=== PATIENT | female | born 1955 | race Caucasian/White ===

== ENCOUNTER → 2021-01-15 11:14 | Outpatient (CLI) | payer OTHER, SELFPAY ==
--- NOTE | ~2021-01-15 | MM_ITS ---
EXAMINATION: MM screening [place] BI w matthew HISTORY: Screening mammogram TECHNIQUE: Craniocaudal and mediolateral oblique 3-D tomosynthesis images were obtained and synthetic 2-D images were generated. CAD analysis was submitted and interpreted. COMPARISON: 10/30/2017, 05/09/2016, 12/17/2012 bilateral digital screening mammogram examinations BREAST PARENCHYMAL COMPOSITION: The breasts are heterogeneously dense, which may obscure small masses . FINDINGS: Digital asymmetry is noted in the posterior inner right breast on cc view. Diagnostic right mammogram is recommended, with ultrasound if required. No suspicious mass, architectural distortion, malignant calcification, skin thickening or retraction of either breast is noted otherwise. IMPRESSION: 1. New asymmetry in posterior inner right breast 2. Diagnostic right mammogram is recommended, with ultrasound if required BI-RADS Category 0: Incomplete: Needs additional imaging evaluation. Reviewed, dictated and finalized at location A.
== END ==
PROVIDERS: PCP Family Medicine; Visit Provider Obstetrics & Gynecology
DX: Z12.31 Encounter for screening mammogram for malignant neoplasm of breast (principal); R92.8 Other abnormal and inconclusive findings on diagnostic imaging of breast
CPT/HCPCS: 77063; 77067

== ENCOUNTER → 2021-02-13 09:20 | Outpatient (CLI) | payer OTHER, SELFPAY ==
--- NOTE | ~2021-02-13 | MM_ITS ---
EXAMINATION: MM diagnostic haleigh RT w matthew HISTORY: Focal asymmetry of the right breast on screening mammogram TECHNIQUE: Additional 3-D tomosynthesis images of the right breast were performed and synthetic 2-D i mages were generated. CAD analysis was submitted and interpreted. COMPARISON: 01/15/2021, 10/30/2017, 05/09/2016 FINDINGS: There is a return to baseline fibroglandular appearance with spot compression of the right breast in the area questioned on screening mammogram. IMPRESSION: 1. No mammographic evidence of malignancy. 2. Recommend routine screening mammography in one year. BI-RADS Category 1: Negative Reviewed, dictated and finalized at location A.
== END ==
PROVIDERS: PCP Family Medicine; Visit Provider Obstetrics & Gynecology
DX: R92.8 Other abnormal and inconclusive findings on diagnostic imaging of breast (principal)
CPT/HCPCS: 77061; 77065; G0279

== ENCOUNTER → 2021-03-04 18:05 | Outpatient (CLI) | payer OTHER, SELFPAY ==
--- NOTE | ~2021-03-04 | DEXA_ITS ---
Bone Density Report Name: Jennifer Patel Age: 65 Sex: Female Ethnicity: White Date of : 1955 Indication: postmenopausal osteoporosis; monitoring treatment; Referring Provider: ARLETH ANTONIO Study: Bone densitometry was performed. Exam Date: March 04, 2021 Accession number: [id number] Bone Density: Region BMD T-score Z-score Classification AP Spine (L1-L4) 0.864 -1.7 0.1 Osteopenia Femoral Neck (Left) 0.577 -2.5 -0.9 Osteoporosis Total Hip (Left) 0.669 -2.2 -1.0 Osteopenia Femoral Neck (Right) 0.509 -3.1 -1.5 Osteoporosis Total Hip (Right) 0.608 -2.7 -1.5 Osteoporosis Total Hip Mean 0.639 -2.5 -1.3 Osteopenia World Health Organization criteria for BMD impression classify patients as: Normal (T-score at or above -1.0), Osteopenia (T-score between -1.0 and -2.5), or Osteoporosis (T-score at or below -2.5). 10-year Fracture Risk: FRAX not reported because: Some T-score for Spine Total or Hip Total or Femoral Neck at or below -2.5 Treated for osteoporosis Previous Exams: Region Exam Age BMD T-score BMD Change BMD Change Date g/cm2 vs Baseline vs Previous AP Spine(L1-L4) 03/04/2021 65 0.864 -1.7 -0.117* 0.005 05/09/2016 60 0.859 -1.7 -0.123* -0.123* 12/03/2006 50 0.982 -0.6 Total Hip(Left) 03/04/2021 65 0.669 -2.2 -0.099* -0.009 05/09/2016 60 0.678 -2.2 -0.090* -0.090* 12/03/2006 50 0.768 -1.4 Total Hip(Right) 03/04/2021 65 0.608 -2.7 -0.116* -0.033* 05/09/2016 60 0.641 -2.5 -0.082* -0.082* 12/03/2006 50 0.724 -1.8 *Denotes significance at 95% confidence level, LSC for AP Spine = 0.022 g/cm2, LSC for Total Hip = 0.027 g/cm2 Clinical Information Provided by Patient: Is being treated for osteoporosis Has used the following medications: Evista (i.e. raloxifene), Vitamin D, Calcium, MTV, Levothyroxine Patient maximum height was 65.0 Menopause Age: 52 Drinks caffeinated beverages Onset of menses at age 13 Number of children 3 Impression: The patient has osteoporosis, based on the Right Femoral Neck T-score. The BMD for the Total Hip(Right) decreased, changing by -0.033 since the last DXA exam. Discussion: SIGNIFICANT BONE LOSS OBSERVED. Adherence to therapy (including calcium and vitamin D intake) should be assessed. If compliance is not a factor, review management and exclusion of secondary causes of bone loss.
== END ==
PROVIDERS: Visit Provider Obstetrics & Gynecology
DX: M85.89 Other specified disorders of bone density and structure, multiple sites (principal); M81.0 Age-related osteoporosis without current pathological fracture
CPT/HCPCS: 77080

== ENCOUNTER 2021-06-17 18:56 | Emergency (ER) | payer OTHER, SELFPAY ==
[2021-06-17 19:03] VITALS: BP 143/87; PULSE 102; RESP 18; TEMP 36.4; O2SAT 99
[2021-06-17 21:22] VITALS: BP 132/75; PULSE 87; RESP 18; TEMP 36.6; O2SAT 100
--- NOTE | 2021-06-17 23:16 | PC.NURSE ---
came and wheeled pt out in [place] as pt stated I think I'm justs gonna try and get into the doctor.
== END 2021-06-18 04:27 | disposition left against medical advice (07) ==
LOC: ANHED 23:21
PROVIDERS: PCP Family Medicine
DX: Z53.21 Procedure and treatment not carried out due to patient leaving prior to being seen by health care provider (principal)
CPT/HCPCS: 99199

== ENCOUNTER → 2022-05-29 16:09 | Outpatient (CLI) | payer OTHER, SELFPAY ==
--- NOTE | ~2022-05-29 | MM_ITS ---
EXAMINATION: MM screening [place] BI w matthew HISTORY: Screening mammogram, family history of breast cancer in her sister. TECHNIQUE: Craniocaudal and mediolateral oblique 3-D tomosynthesis images were obtained and synthetic 2-D images were generated. CAD analysis was submitted and interpreted. COMPARISON: 02/13/2021, 01/15/2021, 10/30/2017, 05/09/2016 BREAST PARENCHYMAL COMPOSITION: The breasts are heterogeneously dense, which may obscure small masses . FINDINGS: No suspicious mass, calcification, or architectural distortion are identified in either pebbles ast to suggest malignancy. There has been no suspicious interval change. IMPRESSION: 1. No mammographic evidence of malignancy. 2. Recommend routine screening mammography in one year. 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
== END ==
PROVIDERS: PCP Family Medicine; Visit Provider Obstetrics & Gynecology Gynecology
DX: Z12.31 Encounter for screening mammogram for malignant neoplasm of breast (principal)
CPT/HCPCS: 77063; 77067

== ENCOUNTER 2022-12-12 09:53 | Emergency (ER) | payer OTHER, SELFPAY ==
--- NOTE | 2022-12-12 09:55 | ED.URI ---
HPI - URI/Sore Throat General Chief Complaint: Upper Respiratory Infection Stated Complaint: sinus infection Time Seen by Provider: 12/12/22 09:54 Source: patient Mode of arrival: ambulatory Limitations: no limitations History of Present Illness HPI Narrative: Ms. Patel is a 66-year-old female patient presenting to the clinic today with complaints of possible sinus infection. She reports she has had nasal congestion, sinus pressure over the right maxilla and dizziness x3 days. States last time she let this go too long and developed vertigo for a long period of time. Is requesting an antibiotic. Denies any fever, chills, nasal drainage, or body aches. MD elicited complaint: sore throat and nasal congestion Related Data Allergies Allergy/AdvReac Type Severity Reaction Status Date / Time codeine Allergy Unknown upset Verified 05/29/22 09:00 stomach duloxetine Allergy Unknown Unknown Verified 05/29/22 09:00 nitrofurantoin Allergy Unknown Numbness Verified 05/29/22 09:00 penicillin V Allergy Unknown Rash Verified 05/29/22 09:00 Penicillins Allergy Unknown Rash Verified 05/29/22 09:00 Sulfa (Sulfonamide Allergy Unknown Numbness Verified 05/29/22 09:00 Antibiotics) Review of Systems Review of Systems: Pertinent positives per HPI. Patient denies any fever, chills, rash, visual changes, dizziness, cough, shortness of breath, chest pain, palpitations, nausea, vomiting, diarrhea, constipation, abdominal pain, or any urinary issues. [facility] Surgical History Surgical History S/P partial thyroidectomy right-side Family History Family History Sibling Family history of rheumatoid arthritis Family history of malignant neoplasm of breast in first degree relative Father Family history of Alzheimer's disease Other Carcinoma of colon Family history of cardiovascular disease Family history of kidney disease Social History Social History Smoking status: Former smoker Tobacco type: cigarettes Second hand tobacco smoke exposure: Yes Smoking end date: 06/22/73 Alcohol intake: current Alcohol use details: social Substance use: never Substance use type: does not use Lack of Transportation: No Lack of Food: Never True Current Housing: I Have Housing Concerned About Future Housing: No Difficulty Paying Gas/Electric Bills: No Difficulty Paying for Meds: No Currently Unemployed: No Education: Master's Degree or Higher Difficulty w/ Childcare or Family Care: No Living arrangements: with family Occupation/Education: occupation Gender identity (if verbalized by the patient): Female Sexual Orientation (if Verbalized by the Patient): Straight or Heterosexual Spiritual care concerns: No Comments At the time of my signature, I reviewed and agree with the nursing past medical, surgical, social, and family history. There is no relevant family history pertinent to the patient complaint. Exam Narrative: General: Well-developed, well nourished, in no apparent distress Head: Normocephalic, atraumatic Eyes: Pupils equally round and reactive to light bilaterally, EOM intact, sclera and conjunctive clear, no discharge, lids normal Ears: TMs intact and congested, ear canals clear, no drainage, grossly hearing normal. Nose: Nares patent, clear discharge, mild inflammation, no sinus tenderness. Mouth: Oral pharynx without lesions or masses, good dentition, MMM. Postnasal drip Neck: Supple, trachea midline, no enlargement of anterior or posterior cervical nodes, no thyroid masses or goiter palpable. Cardio: Regular rate and rhythm, s1 and s2 normal, no murmur appreciated. Resp: Clear to auscultation bilaterally, no rhonchi, rales, wheezing or rubs Course Course Emergency Course: Portions of this re
[2022-12-12 10:05] VITALS: BP 130/83; PULSE 88; RESP 16; TEMP 36.3; O2SAT 99
[2022-12-12 10:12] VITALS: BP 130/83; PULSE 88; RESP 16; TEMP 36.3; O2SAT 99
== END 2022-12-12 10:26 | disposition home or self-care (01) ==
PROVIDERS: Emergency Provider Nurse Practitioner Family; PCP Family Medicine
DX: J06.9 Acute upper respiratory infection, unspecified (principal); Z87.891 Personal history of nicotine dependence
CPT/HCPCS: 99213; G0463

== ENCOUNTER → 2023-03-04 08:37 | Outpatient (CLI) | payer OTHER, SELFPAY ==
--- NOTE | ~2023-03-04 | US_ITS ---
Limited Abdominal Sonogram: Real-time sonographic imaging of the right upper quadrant was performed. Clinical History: Right upper quadrant pain Findings: The liver appears normal with no evidence of mass lesion or bile duct dilatation. Main por oc vein demonstrates normal direction of flow. The gallbladder is well distended, with small layerin g gallstones. The common bile duct measures 3 mm. The visualized pancreas, aorta, and IVC are unrema rkable. Impression: Cholelithiasis. Reviewed, dictated and finalized at location M. Impression: Cholelithiasis.
== END ==
PROVIDERS: PCP Family Medicine; Visit Provider Physician Assistant
DX: R10.11 Right upper quadrant pain (principal); K80.20 Calculus of gallbladder without cholecystitis without obstruction
CPT/HCPCS: 76705

== ENCOUNTER → 2023-03-04 08:45 | Outpatient (CLI) | payer OTHER, SELFPAY ==
--- NOTE | ~2023-03-04 | US_ITS ---
EXAMINATION: US thyroid DATE: 03/04/2023 09:21 INDICATION: Nontoxic single thyroid nodule. TECHNIQUE: Multiple ultrasound images of the thyroid were obtained. COMPARISON: Ultrasound 02/25/2017 FINDINGS: The right thyroid lobe is absent. The left thyroid lobe measures 4.1 x 0.8 x 1.0 cm. In the left thy roid lobe, there is a 2 mm nodule. IMPRESSION: 1. Small thyroid nodule, likely not clinically significant. No follow-up is needed. Reviewed, dictated and finalized at location A. IMPRESSION: 1. Small thyroid nodule, likely not clinically significant. No follow-up is nee ded.
== END ==
PROVIDERS: PCP Otolaryngology; Visit Provider Otolaryngology
DX: E04.1 Nontoxic single thyroid nodule (principal)
CPT/HCPCS: 76536

== ENCOUNTER 2023-04-14 10:00 | Outpatient (CLI) | payer OTHER, SELFPAY ==
--- NOTE | ~2023-04-14 | US_ITS ---
EXAMINATION: US carotid duplex BI DATE: 04/14/2023 10:44 INDICATION: TIA TECHNIQUE: Grayscale, color Doppler, and pulsed Doppler images of the cervical carotid arteries were obtained. The degree of vessel stenosis is placed in one of the following categories: normal, <50%, 5 0-69%, >=70% but less than near-occlusion, near-occlusion, or total occlusion. Note that percent sten osis relative to normal distal artery lumen diameter is indirectly measured from velocity measurement s as described by Mario, et al. Radiology 2003; 229:340-346. Notes: Normal: Peak systolic velocity <125 centimeters/sec and no plaque <50%. Peak systolic velocity <125 ( EDV <40; ICA/CCA PSV ratio <2.0; used these factors only a tandem lesions or low cardiac output or co ntralateral disease) 50-69 %: PSV 125-230 (EDV 40-100; ratio 2-4) >= 70% but less than near occlusion: PSV greater than 230 (EDV > 100; ratio> 4.0) Near Occlusion: PSV that is variable; markedly narrowed lumen Occlusion: Absent flow on color/spectral Doppler and no lumen on mcgee scale. COMPARISON: None. FINDINGS: RIGHT: The right common carotid artery (CCA) peak systolic velocity (PSV) is 115 cm/s. The right internal ca rotid artery (ICA) PSV is 79 cm/s. The right ICA end-diastolic velocity (EDV) is 28 cm/s. The right I CA/CCA PSV ratio is 0.7. The external carotid artery (ECA) PSV is 99 cm/s. There is antegrade flow in the right vertebral artery. LEFT: The left CCA PSV is 115 cm/s. The left ICA PSV is 80 cm/s. The left ICA EDV is 23 cm/s. The left ICA/ CCA PSV ratio is 0.8. The ECA PSV is 57 cm/s. There is antegrade flow in the left vertebral artery. IMPRESSION: 1. Less than 50% stenosis in the right internal carotid artery by sonographic criteria. 2. Less than 50% stenosis in the left internal carotid artery by sonographic criteria. Reviewed, dictated and finalized at location L. IMPRESSION: 1. Less than 50% stenosis in the right internal carotid artery by sonographic jose ruiz. 2. Less than 50% stenosis in the left internal carotid artery by sonographic yadi larios.
--- NOTE | ~2023-04-14 | CT_ITS ---
Non-contrast Head CT History: TIA Technique: Axial non-contrast imaging of the brain was performed. Dose reduction technique was used on this scan by utilizing automated exposure control and iterative reconstruction technique. The dose -length product (DLP) was 605.33 mGy-cm. Findings: There is no evidence of intracranial hemorrhage, mass lesion, or acute infarct. Brain par enchyma appears normal. The ventricles and subarachnoid spaces are normal in size. The calvarium ap pears normal. The visualized paranasal sinuses and mastoid air cells are clear. Impression: No significant abnormality seen. Reviewed, dictated and finalized at location . Impression: No significant abnormality seen.
== END 2023-04-14 10:01 | disposition home or self-care (01) ==
PROVIDERS: PCP Family Medicine; Visit Provider Family Medicine
DX: I65.23 Occlusion and stenosis of bilateral carotid arteries (principal)
CPT/HCPCS: 70450; 93880

== ENCOUNTER 2023-04-23 07:29 | Day surgery (SDC) | payer OTHER, SELFPAY ==
[2023-02-18 09:39] VITALS: BMI 22.5
[2023-04-07 09:20] VITALS: BMI 22.0
--- NOTE | 2023-04-22 15:09 | WPDANESEPPF ---
Anes - Initial Pre Proc Eval Procedure: Operation Date: 04/23/23 10:00 Proposed Procedures p Colonoscopy - Homero Centeno MD Date/Time: 04/22/23 15:09 Surgeon: Homero Centeno MD Pre Op Diagnosis: Personal History of Colon Polyps Patient Data Age: 67 Gender: F Height: 1.65 m Weight: 60 kg Allergies Allergy/AdvReac Type Severity Reaction Status Date / Time codeine Allergy Severe upset Verified 04/23/23 08:45 stomach nitrofurantoin Allergy Severe Nausea and Verified 04/23/23 08:45 Vomiting penicillin V Allergy Severe Rash Verified 04/23/23 08:45 Penicillins Allergy Severe Rash Verified 04/23/23 08:45 Sulfa (Sulfonamide Allergy Severe Other Verified 04/23/23 08:45 Antibiotics) duloxetine Allergy Unknown Unknown Verified 04/23/23 08:45 Home Medications Medication Instructions Recorded Confirmed Type fluticasone propionate 50 1 - 2 spray intranasal BID #16 mL 05/29/22 04/23/23 Rx mcg/actuation nasal spray,suspension (Flonase Allergy Relief) Synthroid 75 mcg tablet See Rx Instructions .Route 02/26/23 04/23/23 Rx (levothyroxine) .COMPLEX #90 tabs valacyclovir 1 gram tablet 1,000 mg PO TID #21 tabs 02/26/23 04/23/23 Rx alprazolam 0.5 mg tablet (Xanax) 0.5 mg PO TID PRN Anxiety 04/07/23 04/23/23 History rosuvastatin 5 mg tablet (Crestor) 5 mg PO DAILY #30 tabs 04/22/23 04/23/23 Rx Patient hx anesthesia problems: none Family hx anesthesia problems: none Results Review: All pre-operative results and documents have been reviewed as part of the pre-operative evaluation. [facility] Past Medical History Medical History (Updated 04/23/23 @ 12:39 by Rob Glover DO) HLD (hyperlipidemia) Surgical History Surgical History S/P partial thyroidectomy right-side Family History Family History Sibling Family history of rheumatoid arthritis Family history of malignant neoplasm of breast in first degree relative Father Family history of Alzheimer's disease Other Carcinoma of colon Family history of cardiovascular disease Family history of kidney disease Social History Social History Smoking status: Former smoker Tobacco type: cigarettes Second hand tobacco smoke exposure: Yes Smoking end date: 06/22/73 Alcohol intake: current Alcohol use details: occassional Substance use: never Substance use type: does not use Lack of Transportation: No Lack of Food: Never True Current Housing: I Have Housing Concerned About Future Housing: No Difficulty Paying Gas/Electric Bills: No Difficulty Paying for Meds: No Currently Unemployed: No Education: Master's Degree or Higher Difficulty w/ Childcare or Family Care: No Living arrangements: with family Occupation/Education: occupation Gender identity (if verbalized by the patient): Female Sexual Orientation (if Verbalized by the Patient): Straight or Heterosexual Spiritual care concerns: No Anes - Eval Final PreProcedure Day of Procedure 04/22/23 15:09 Patient weight: normal Heart: regular rate and rhythm Lungs: clear to auscultation and normal air movement Airway: Mallampati scale class II Neurological: alert and oriented Last oral intake: >/= 8 hours ASA classification: II Emergent: no Anesthetic plan: proceed Anesthesia type and monitoring: general GIVS and standard monitoring Results Review: All pre-operative results and documents have been reviewed as part of the pre-operative evaluation. Informed Consent: The patient's anesthetic plan and its attendant risks and benefits were discussed with the patient/family/POA. Questions were solicited and answers provided to the satisfaction of the patient/family/POA.
[2023-04-23 08:40] VITALS: BP 125/78; PULSE 100; RESP 20; TEMP 36.9; O2SAT 100
[2023-04-23] MEDS: LACTATED RINGERS 1,000 ML 150 ML IV CONT (08:59)
--- NOTE | 2023-04-23 09:01 | PM.HPGS ---
History of Present Illness History of Present Illness Consent: Risks, benefits, and alternatives have been discussed and questions answered. Patient agrees to proceed with procedure. Chief complaint: Personal History of Colon Polyps Narrative: Jennifer Patel is a 67 year old female presents for screening colonoscopy. The patient's current weight appetite and bowel movements are normal. Patient has a history of a sessile serrated adenoma removed from the colon in 2018. Patient's current weight appetite and bowel movements are normal. Patient denies abdominal pain. She has had no bleeding. Family history is significant for polyps in the family. A grandparent had colon cancer. Review of Systems Review of Systems: Review of Systems noncontributory. [facility] Past Medical History Medical History (Updated 04/23/23 @ 09:03 by Homero Centeno MD) HLD (hyperlipidemia) TIA (transient ischemic attack) Surgical History Surgical History S/P partial thyroidectomy right-side Family History Family History Sibling Family history of rheumatoid arthritis Family history of malignant neoplasm of breast in first degree relative Father Family history of Alzheimer's disease Other Carcinoma of colon Family history of cardiovascular disease Family history of kidney disease Social History Social History Smoking status: Former smoker Tobacco type: cigarettes Second hand tobacco smoke exposure: Yes Smoking end date: 06/22/73 Alcohol intake: current Alcohol use details: occassional Substance use: never Substance use type: does not use Lack of Transportation: No Lack of Food: Never True Current Housing: I Have Housing Concerned About Future Housing: No Difficulty Paying Gas/Electric Bills: No Difficulty Paying for Meds: No Currently Unemployed: No Education: Master's Degree or Higher Difficulty w/ Childcare or Family Care: No Living arrangements: with family Occupation/Education: occupation Gender identity (if verbalized by the patient): Female Sexual Orientation (if Verbalized by the Patient): Straight or Heterosexual Spiritual care concerns: No Meds Home Medications and Allergies Home Medications Medication Instructions Recorded Confirmed Type fluticasone propionate 50 1 - 2 spray intranasal BID #16 mL 05/29/22 04/23/23 Rx mcg/actuation nasal spray,suspension (Flonase Allergy Relief) Synthroid 75 mcg tablet See Rx Instructions .Route 02/26/23 04/23/23 Rx (levothyroxine) .COMPLEX #90 tabs valacyclovir 1 gram tablet 1,000 mg PO TID #21 tabs 02/26/23 04/23/23 Rx alprazolam 0.5 mg tablet (Xanax) 0.5 mg PO TID PRN Anxiety 04/07/23 04/23/23 History rosuvastatin 5 mg tablet (Crestor) 5 mg PO DAILY #30 tabs 04/22/23 04/23/23 Rx Allergies Allergy/AdvReac Type Severity Reaction Status Date / Time codeine Allergy Severe upset Verified 04/23/23 08:45 stomach nitrofurantoin Allergy Severe Nausea and Verified 04/23/23 08:45 Vomiting penicillin V Allergy Severe Rash Verified 04/23/23 08:45 Penicillins Allergy Severe Rash Verified 04/23/23 08:45 Sulfa (Sulfonamide Allergy Severe Other Verified 04/23/23 08:45 Antibiotics) duloxetine Allergy Unknown Unknown Verified 04/23/23 08:45 Vital Signs Vital Signs - 24 hr 04/23/23 08:40 Temperature 98.4 F Pulse Rate 100 Respiratory Rate 20 Blood Pressure 125/78 Pulse Oximetry 100 Oxygen Delivery Room Air Exam Narrative: physical exam reveals patient to be alert. Vital signs stable. HEENT exam is unremarkable. Patient is anicteric. Are clear to auscultation and percussion. Without murmur or extra sounds. Abdomen bowel sounds are present soft nontender with no organomegaly. Digital external rectal exam is normal
[2023-04-23] MEDS: SIMETHICONE ORAL SUSPENSION 20 MG/0.3 ML 30 ML BOTTLE 0.6 ML IRRIGATION (10:07)
[2023-04-23 10:17] VITALS: BP 106/60; PULSE 88; RESP 16; O2SAT 100
[2023-04-23 10:27] VITALS: BP 110/75; PULSE 83; RESP 16; O2SAT 100
[2023-04-23 10:37] VITALS: BP 121/71; PULSE 80; RESP 16; O2SAT 100
--- NOTE | 2023-04-23 12:41 | WPDANESPN ---
Anes - Prog Note Post-Op Date/Time: 04/23/23 12:41 Cardiovascular status: normal Respiratory status: normal Airway patency: baseline Mental status: baseline Post-Op hydration status: normal Vital Signs: Last Vital Signs Temp 36.9 C 04/23/23 08:40 Pulse 80 04/23/23 10:37 Resp 16 04/23/23 10:37 BP 121/71 04/23/23 10:37 Pulse Ox 100 04/23/23 10:37 O2 Del Method Room Air 04/23/23 10:37 Pain Score (VAS): 0 I/O: Intake & Output 04/22/23 04/23/23 04/23/23 23:59 07:59 15:59 Intake Total 500 Balance 500 Post-procedural complaints: none Patient Feedback: Patient satisfied with anesthetic care. Other Findings: Patient vital signs back to baseline. Patient denies nausea and vomiting. Patient's pain under control. Patient OK for discharge.
== END 2023-04-23 10:48 | disposition home or self-care (01) ==
PROVIDERS: PCP Family Medicine; Visit Provider Internal Medicine Gastroenterology
PROC: 0DJD8ZZ Inspection of Lower Intestinal Tract, Via Natural or Artificial Opening Endoscopic (ICD-10-PCS; CPT 45378; principal; 2023-04-23 10:00)
DX: Z86.010 Personal history of colon polyps (principal); K57.30 Diverticulosis of large intestine without perforation or abscess without bleeding; K64.8 Other hemorrhoids
CPT/HCPCS: 45378

== ENCOUNTER 2024-09-09 09:02 | Outpatient (CLI) | payer OTHER, SELFPAY ==
--- NOTE | ~2024-09-09 | DEXA_ITS ---
Bone Density Report Name: FANTASMA CEBALLOS Age: 68 Sex: Female Ethnicity: White Date of : 1955 Indication: postmenopausal; screening for osteoporosis; height loss; Referring Provider: GERARD, JASON Study: Bone densitometry was performed. Exam Date: September 09, 2024 Accession number: [id number] Bone Density: Region BMD T-score Z-score Classification AP Spine(L1-L4) 0.853 -1.8 0.3 Osteopenia Femoral Neck (Left) 0.489 -3.2 -1.5 Osteoporosis Total Hip (Left) 0.667 -2.3 -0.8 Osteopenia Femoral Neck (Right) 0.473 -3.4 -1.7 Osteoporosis Total Hip (Right) 0.620 -2.6 -1.2 Osteoporosis Total Hip Mean 0.643 -2.5 -1.0 Osteopenia World Health Organization criteria for BMD impression classify patients as: Normal (T-score at or above -1.0), Osteopenia (T-score between -1.0 and -2.5), or Osteoporosis (T-score at or below -2.5). 10-year Fracture Risk: FRAX not reported because: Some T-score for Spine Total or Hip Total or Femoral Neck at or below -2.5 Clinical Information Provided by Patient: Has used the following medications: Vitamin D, Calcium, SYNTHROID Patient maximum height was 65 Menopause Age: 50 Onset of menses at age 12 Number of children 3 Impression: The patient has osteoporosis, based on the Right Femoral Neck T-score. Discussion: INCREASED RISK OF FRACTURE. BONE DENSITY IS UNDESIRABLY LOW AT ONE OR MORE SKELETAL SITES, CONSISTENT WITH POSTMENOPAUSAL OSTEOPOROSIS. This patient's lowest T-score meets the World Health Organization's (WHO) criteria for osteoporosis at one or more sites (T-score -2.5 or below). In untreated patients, the risk of osteoporotic fracture increases approximately two-fold for each 1.0 SD decrease in T-score. Low bone density is not the only risk factor for fracture; also consider factors such as patient's age, frailty or poor health, risk of falling, risk of injury, previous osteoporotic fracture, family history of osteoporosis, cigarette smoking, low body weight, etc. Not everyone with low bone mineral density has osteoporosis; osteomalacia and other metabolic bone disorders should also be considered. Patients who have osteoporosis should be evaluated for specific diseases and conditions (secondary causes) that may cause or contribute to bone loss. The [place] Association of Clinical Endocrinologists (AACE) and National Osteoporosis Foundation (NOF) recommend pharmacologic intervention for all postmenopausal women whose T-score is in this range. The patient should follow a healthful lifestyle (good nutrition with adequate calcium and vitamin D, and appropriate weight-bearing exercise). Follow-Up: Consider a repeat BMD and Vertebral Fracture Assessment (VFA) exam in 2 years or sooner if medically necessary, to reassess this patient's status. Reported by: PAGE on 09/09/2024 9:40:00 AM. Reviewed, dictated and finalized at location ASarah MILLER
--- NOTE | ~2024-09-09 | MM_ITS ---
EXAMINATION: MM screening [place] BI w matthew HISTORY: Screening TECHNIQUE: Craniocaudal and mediolateral oblique 3-D tomosynthesis images were obtained and synthetic 2-D images were generated. CAD analysis was submitted and interpreted. COMPARISON: Comparison to multiple prior studies sequentially, with oldest reviewed study dated 04/22. BREAST PARENCHYMAL COMPOSITION: Dense: The breasts are heterogeneously dense, which may obscure small masses FINDINGS: There is no evidence of suspicious mass, calcification, or architectural distortion to sugg est malignancy in either breast. There has been no suspicious interval change. IMPRESSION: 1. No mammographic evidence of malignancy. 2. Recommend routine screening mammography in one year. BI-RADS Category 1: Negative Reviewed, dictated and finalized at location B.
--- OUTSIDE RECORDS SUMMARY | 2024-09-09 10:04 | XMS_ITS | Clinical Summary ---
Author Organization [facility] [address] Address [address] [place] [address] Care Team Providers Care Receiving Dock Checker Name Role Phone Adan Lora MD Primary Care Provider Allergies Active Allergy Reactions Criticality Noted Date Comments Codeine Penicillins Sulfa (Sulfonamide Antibiotics) Medications escitalopram (LEXAPRO) 10 mg tablet 4 Active tretinoin (ALTRALIN) 0.05 % gel 4 Active risedronate (ACTONEL) 150 mg tablet 4 Active Procto-Med HC 2.5 % rectal cream 4 Active Yuvafem 10 mcg tablet 4 Active methylPREDNISol one (Medrol, Ebenezer,) 4 mg DosepackIndicat ions:Periorbita l cellulitis of left eye follow package directions 1 packet 4 Active Active Problems No known active problems Social History Tobacco Use Types Packs/Day Years Used Date Smoking Tobacco: Former Personal Safety Answer Date Recorded Getting School Help Needed Not on file 08/20 Comments Unknown Sex and Gender Information Value Date Recorded Sex Assigned at Not on file 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 Gender Identity Not on file Sexual Orientation Not on file Obstetrics History Last Filed Vital Signs Vital Sign Reading Time Taken Comments Blood Pressure 117/79 01/24/2024 8:30 AM CDT Pulse 88 01/24/2024 8:30 AM CDT Temperature 36.8 C (98.3 F) 01/24/2024 8:30 AM CDT Respiratory Rate 20 01/24/2024 8:30 AM CDT Oxygen Saturation 98% 01/24/2024 8:30 AM CDT Inhaled Oxygen Concentration - - Weight 61.7 kg (136 lb) 01/24/2024 8:30 AM CDT Height 167.6 cm (5' 6 ) 01/24/2024 8:30 AM CDT Body Mass Index 21.95 01/24/2024 8:30 AM CDT Plan of Treatment Health Maintenance Due Date Last Done Comments Breast Cancer Screening-Mammogram 1955 Colon Cancer Screening-Colonoscopy 1955 Depression Screening 1955 Fall Risk Assessment 1955 Hepatitis C Screening 1955 Osteoporosis Screening-Bone Density Scan 1955 DTaP/Tdap/Td Vaccine (1 - Tdap) 12/19/1966 Hepatitis B Screening 12/19/1973 Pneumococcal vaccine 65+ (1 of 1 - PCV) 12/19/2005 Zoster Vaccine (1 of 2) 12/19/2005 Well Visit 65+ 12/19/2020 Covid-19 Vaccine ( season) 2024 06/05/2021, 09/11/2020, 08/14/2020 Influenza Vaccine (#1) 2024 04/18/2020, 2018 Insurance [facility] [employer] Care Teams Receiving Dock Checker Relationship Specialty Start Date End Date Adan Lora MD [address] [facility] [address] [place] [address] PCP - General Family Medicine 03/19/23
--- OUTSIDE RECORDS SUMMARY | 2024-09-09 10:04 | XMS_ITS | Referral Summary ---
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
--- OUTSIDE RECORDS SUMMARY | 2024-09-09 10:04 | XMS_ITS | Clinical Summary ---
Author Organization [facility] Address [address] [place] [id number] Care Team Providers Care Putty And Patch Worker Name Role Phone Unavailable Primary Care Provider Unavailabl e Social History Tobacco Use Types Packs/Day Years Used Date Smoking Tobacco: Never Assessed Comments Unknown Sex and Gender Information Value Date Recorded Sex Assigned at Not on file Legal Sex Female 6:38 PM CDT Gender Identity Not on file Sexual Orientation Not on file Plan of Treatment Health Maintenance Due Date Last Done Comments Colorectal Cancer Screening Colonoscopy (10 Years) 1955 Hepatitis C 12/19/1973 DTaP, Tdap and Td Vaccines ( 1 - Tdap) 12/19/1974 Mammogram Screening 1995 Zoster Vaccines (1 of 2) 12/19/2005 Dexa Scan (General) 12/19/2020 Pneumococcal Vaccine: 65+ Ye ars (1 of 1 - PCV) 12/19/2020 COVID-19 Vaccine ( - 2023-2 5 season) 2024 Influenza Adult (#1) 2024 RSV Immunization or 60+ Years (1 - 1-dose 75+ series) 12/19/2030 Meningococcal B Vaccine Aged Out No l onger eligible based on patient's age to complete this topic Meningococcal Vaccine Aged Out No [place] tara eligible based on patient's age to complete this topic RSV Immunizations Under 20 Months Aged Out No longer eligible based on patient's age to complete this topic
--- OUTSIDE RECORDS SUMMARY | 2024-09-09 10:04 | XMS_ITS | Clinical Summary ---
Author Organization [facility] Address [address] [place] [address] Care Team Providers Care Substation Operator Chief Name Role Phone Adan Lora MD Primary Care Provider [phone] Source Comments [facility],non-owned Affiliates and Associated Physician Practices is amultiple site organization consisting of ambulatory clinics and hospital sitesin [place], [place], [place] and [place]. This disclosure is being madepursuant to the Care Everywhere program and may not contain all information available regarding this patient. Last updated 18.[facility] [employer] Social History Tobacco Use Types Packs/Day Years Used Date Smoking Tobacco: Never Assessed Sex and Gender Information Value Date Recorded Sex Assigned at Not on file Gender Identity Not on file Sexual Orientation Not on file Plan of Treatment Health Maintenance Due Date Last Done Comments BONE DENSITY TESTING 1955 COLOGUARD (AGES 45-75) - COL ON CA SCREENING 1955 COLON MONITORING 1955 COLONOSCOPY - COLON CA SCREENING 1955 CT COLONOGRAPHY - COLON CA SCREENING 1955 Colorectal Cancer Screening 1955 FIT - COLON CA SCREENING 1955 FLEX SIG - COLON CA SCREENING 1955 LIPID TESTING 1955 MAMMOGRAM 1955 HEPATITIS C SCREENING 12/15/1973 DTAP/TDAP/TD VACCINES (1 - Tdap) 12/19/1974 PNEUMOCOCCAL VACCINE 50+ (1 of 1 - PCV) 12/19/2005 ZOSTER VACCINE (1 of 2) 12/19/2005 COVID-19 VACCINE ( - 2023-2 5 season) 2024 INFLUENZA VACCINE (#1) 2024 DEPRESSION SCREENING 06/22/2024 Respiratory Syncytial Virus (RSV) Vaccine Pt: or over 60 yrs (1 - 1-dose 75+ series) 12/19/2030 HEPATITIS B VACCINE Aged Out No longe r eligible based on patient's age to complete this topic HIB VACCINE Aged Out No longer eligi ble based on patient's age to complete this topic HPV VACCINE Aged Out No longer eligi ble based on patient's age to complete this topic MENINGOCOCCAL (Group B) VACC INE SHARED DECISION-MAKING Aged Out No longer eligibl e based on patient's age to complete this topic MENINGOCOCCAL GROUPS A/C/Y/W VACCINE Aged Out No longer eligible b ased on patient's age to complete this topic Care Teams Substation Operator Chief Relationship Specialty Start Date End Date Adan Lora MD [address] [place] [address] PCP - General 02/01/18
--- OUTSIDE RECORDS SUMMARY | 2024-09-09 10:04 | XMS_ITS | Encounter Summary ---
Author Organization [facility] Address [address] [facility] [place] [address] Care Team Providers Care Primary Care Physician Name Role Phone Adan Lora MD Primary Care Provider [phone] Encounter Details Date Type Department Care Team (Late st Contact Info) Description 04/28/2023 Lab Requisition [facility] - DermPath Lab [address] [facility], [place] [id number] Korina Quinteros DO [address] [facility] [address] [place] [address] Social History Tobacco Use Types Packs/Day Years Used Date Smoking Tobacco: Never Assessed Sex and Gender Information Value Date Recorded Sex Assigned at Not on file Gender Identity Not on file Sexual Orientation Not on file documented as of this encounter Plan of Treatment Not on file documented as of this encounter Procedures Procedure Name Priority Date/Time Associated Diagnosis Comments DERMATOPATHOLOGY Routine 04/28/2023 1:37 PM CORONARY CARE UNIT NURSE documented in this encounter Results * DERMATOPATHOLOGY (04/28/2023 1:37 PM CORONARY CARE UNIT NURSE) Case Report Dermatopathology Report Case: [id number] Authorizing Provider: Korina Quinteros DO Collected: 04/28/2023 01:37 PM Ordering Location: [facility] DermPath Lab Received: 04/29/2023 12:59 PM Pathologist: Stefania Riley MD Specimen: Skin, left chest 3 2:20 PM CORONARY CARE UNIT NURSE DERMATOPATHOLOGY LABORATORY Final Diagnosis Specimen A. SKIN, left chest: ACTINIC KERATOSIS (L57.0) 3 2:20 PM CORONARY CARE UNIT NURSE DERMATOPATHOLOGY LABORATORY Clinical History LPLK R/O BCC 3 2:20 PM [facility] DERMATOPATHOLOGY LABORATORY Gross Description Specimen A: Received is one formalin filled container labeled with the patient's name and designated left chest. The specimen consists of a shave biopsy measuring 4x3x1 mm. Jar 0. 3 2:20 PM [facility] DERMATOPATHOLOGY LABORATORY Microscopic Description Specimen A. SKIN, left chest: There is focal parakeratosis. The lower half of the epidermis shows disorderly maturation of keratinocytes with nuclear pleomorphism. 3 2:20 PM [facility] DERMATOPATHOLOGY LABORATORY Disclaimer An external and internal positive and negative controls are appropriate for the histochemical, immunohistochemical and immunofluorescence stain(s) in this case (if any), except where stated explicitly. The performance characteristics of the stain(s) cited in this report were developed and its performance characteristic determined by the Dermatopathology Laboratory at [facility], directed by Dr. George Lewis. These tests need not be, and therefore are not, approved by the [place] Food and Drug Administration. The tests are used for clinical purposes. Billing Codes Specimen Charges Stain Charges 01726 1 3 2:20 PM [facility] DERMATOPATHOLOGY LABORATORY Embedded Images 3 2:20 PM [facility] DERMATOPATHOLOGY LABORATORY Pathology/Cytolo gy TISSUE SPECIMEN FROM SKIN / Unknown 04/28/2023 1:37 PM CORONARY CARE UNIT NURSE 04/29/2023 12:59 PM CORONARY CARE UNIT NURSE Korina Quinteros DO LAB - PATHOLOGY/C YTOLOGY ORDERABLES DERMATOPATHOLOGY LABORATORY [facility] - Department of Dermatology [facility] Specialized Medicine [address] [place] [address], [address] [phone] documented in this encounter Visit Diagnoses Not on filedocumented in this encounter Care Teams Primary Care Physician Relationship Specialty Start Date End Date Adan Lora MD [address] [place] [address] PCP - General 02/01/18 documented as of this encounter
--- OUTSIDE RECORDS SUMMARY | 2024-09-09 10:04 | XMS_ITS | Clinical Summary ---
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 Gender Identity Not on file Sexual Orientation Not on file Plan of Treatment Health Maintenance Due Date Last Done Comments DEXA Bone Density 1955 Hepatitis C Virus (HCV) Screening 1955 TdaP Immunization 1955 Colonoscopy 12/19/2000 Colorectal Cancer Screening 12/19/2000 Cologuard 12/19/2005 Immunochemical Fecal Occult Blood 12/19/2005 Mammogram 12/19/2005 Pneumococcal Immunization (5 0+ years) (1 of 1 - PCV) 12/19/2005 Zoster Immunization (1 of 2) 12/19/2005 Influenza Immunization (#1) 2024 04/18/2020 SARS-COV-2 Immunization ( season) 2024 06/05/2021, 09/11/2020, 08/14/2020 Respiratory Syncytial Virus (RSV) Immunization (Adult) (1 - 1-dose 75+ series) 12/19/2030 Hepatitis B Immunization Aged Out No longer eligible based on patient's age to complete this topic Meningococcal Immunization (ACWY) Aged Out No longer eligible b ased on patient's age to complete this topic Rotavirus Immunization Aged Out No lo nger eligible based on patient's age to complete this topic Insurance [facility] Care Teams Licensed Insurance Agent Relationship Specialty Start Date End Date Adan Lora MD [address] [place] [address] PCP - General Family Medicine 04/28/23
== END 2024-09-09 09:03 | disposition home or self-care (01) ==
LOC: ANHIMG 09:05
PROVIDERS: PCP Family Medicine; Visit Provider Nurse Practitioner Women's Health
DX: Z12.31 Encounter for screening mammogram for malignant neoplasm of breast (principal); M81.0 Age-related osteoporosis without current pathological fracture; Z78.0 Asymptomatic menopausal state; Z13.820 Encounter for screening for osteoporosis
CPT/HCPCS: 77063; 77067; 77080

== ENCOUNTER 2024-09-14 09:14 | Emergency (ER) | payer OTHER, SELFPAY ==
[2024-09-14 09:27] VITALS: BP 127/76; PULSE 88; RESP 16; TEMP 37.2; O2SAT 100
--- NOTE | 2024-09-14 10:04 | ED_ITS ---
HPI - URI/Sore Throat General Chief Complaint: Upper Respiratory Infection Stated Complaint: SINUS CONGESTION Time Seen by Provider: 09/14/24 10:02 Source: patient and RN notes reviewed Mode of arrival: ambulatory Limitations: no limitations History of Present Illness HPI Narrative: 68 year old female presents to the [facility] today complaining of upper respiratory symptoms for for 2 weeks. She reports that her symptoms started with a scratchy throat and postnasal drip, and sinus pressure she was taking Mucinex, and Flonase for symptoms at home. Her symptoms suddenly got worse on Thursday when she developed worsening pressure on the right side of her face that radiates into her right ear and back behind her right eye. She also developed dizziness that was worse with bending over or turning her head quickly side the site. She denies any cough, fever, congestion, ear pain. She denies any difficulty breathing or chest pain. She denies any vision changes or swelling to her face. In the past she has had a history of sinusitis that presented similarly to the symptoms that she is having today. Related Data Home Medications ?Medication ?Instructions ?Recorded ?Confirmed ?Last Taken ?Type escitalopram oxalate 10 mg tablet 10 mg PO DAILY 06/18/23 08/03/24 Unknown History risedronate 150 mg tablet mg PO 09/14/24 Unknown History tretinoin 0.05 % topical cream applic topical 09/14/24 Unknown History Allergies Allergy/AdvReac Type Severity Reaction Status Date / Time codeine Allergy Severe upset Verified 08/03/24 13:35 stomach nitrofurantoin Allergy Severe Nausea and Verified 08/03/24 13:35 Vomiting penicillin V Allergy Severe Rash Verified 08/03/24 13:35 Penicillins Allergy Severe Rash Verified 08/03/24 13:35 Sulfa (Sulfonamide Allergy Severe Other Verified 08/03/24 13:35 Antibiotics) duloxetine Allergy Unknown Unknown Verified 08/03/24 13:35 Review of Systems Review of Systems: CONSTITUTIONAL: Denies fever, chills, or sweats. EYES: Denies visual changes, redness, or discharge. ENT: Denies rhinorrhea, congestion, sore throat, or otalgia. Positive for right facial pressure CARDIOVASCULAR: Denies chest pain, palpitations, or edema. RESPIRATORY: Denies cough or dyspnea. GASTROINTESTINAL: Denies abdominal pain, nausea, vomiting, or diarrhea. GENITOURINARY: Denies dysuria or hematuria. SKIN: Denies rash or itching. MUSCULOSKELETAL: Denies back pain, joint pain, or myalgia. NEUROLOGIC: Denies headache, numbness, or weakness. Positive for dizziness PSYCHIATRIC: Denies anxiety or depression. All other systems reviewed are negative, except as documented in HPI. [facility] Past Medical History Medical History HLD (hyperlipidemia) Surgical History Surgical History S/P partial thyroidectomy right-side Family History Family History Sibling Family history of rheumatoid arthritis Family history of malignant neoplasm of breast in first degree relative Father Family history of Alzheimer's disease Other Carcinoma of colon Family history of cardiovascular disease Family history of kidney disease Social History Social History Social History: Smoking packs per day: 1 Smoking cigarettes per day: 20.0 Smoking status: Former smoker Tobacco type: cigarettes Second hand tobacco smoke exposure: Yes Smoking end date: 06/22/73 Alcohol intake: current Alcohol use details: occassionally Substance use: never Substance use type: does not use Do You Feel Safe in your Home?: Yes Lack of Transportation: No Lack of Food: Never True Current Housing: I Have Housing Concerned About Future Housing: No Difficulty Paying Gas/Electric Bills: No Difficulty Paying for Meds: No Currently Unemployed: No Education: Master's Degree or Higher Difficulty w/ Childcare or Family Care: YES Living arrangements: with family Occupation/Education: retired Gender identity (if verbalized by the patient): Female Sexual Orientation (if Verbalized by the Patient): Straight or Heterosexual Spiritual care concerns: No Comments At the time of my signature, I reviewed and agree with the nursing past medical, surgical, social, and family history. There is no relevant family history pertinent to the patient complaint. Exam Narrative: GENERAL: This is a well-nourished, well-developed patient, in no apparent distress. HEAD: normocephalic, atraumatic. EYES: Sclera clear/white. Vision is grossly intact. No nystagmus. EARS: External ears normal, auditory canals clear and without drainage, TMs normal without perforation. Hearing grossly intact. NOSE: External nose normal with no obvious nasal discharge, nares without redness, no rhinorrhea. THROAT: Mucous membranes moist, posterior pharynx with postnasal drip present. NECK: Neck supple, non-tender without lymphadenopathy. CARDIOVASCULAR: Regular rate and rhythm without murmurs, gallops, or rubs. RESPIRATORY: Clear to auscultation. Breath sounds equal bilaterally. No wheezes, rales, or rhonchi. GASTROINTESTINAL: Abdomen soft, non-tender, nondistended. SKIN: warm, Dry, intact with no suspicious lesions or rash, good texture and turgor. NEURO: awake, alert, and oriented to person, place and time. There were no obvious focal neurologic abnormalities. EXTREMITIES: No joint tenderness, effusion, or edema noted. BACK: Nontender without deformity. Course Course Level of Care: Express Care Visit Vital Signs Vital signs: Vital Signs Temperature 98.9 F 09/14/24 09:27 Pulse Rate 88 09/14/24 09:27 Respiratory Rate 16 09/14/24 09:27 Blood Pressure 127/76 09/14/24 09:27 Pulse Oximetry 100 09/14/24 09:27 Temperature 98.9 F 09/14/24 09:27 Pulse Rate 88 09/14/24 09:27 Respiratory Rate 16 09/14/24 09:27 Blood Pressure 127/76 09/14/24 09:27 Pulse Oximetry 100 09/14/24 09:27 Reviewed MDM - URI/Sore Throat MDM Narrative Medical decision making narrative: Symptoms are consistent with sinusitis. Symptoms initially started as an upper respiratory infection but starting to get better and suddenly got worse starting on Thursday. She does have dizziness associated with sinus pressure, that is worse with bending over or quick movements of her head. Will plan to treat empirically with doxycycline. Dentist anticipatory guidance given and return precautions to the emergency department were discussed. We will also have her continue these Flonase and Mucinex for symptom management. He may also use a Neti pot for sinus rinses. Differential Diagnosis Differential diagnosis: Likely upper respiratory infection, sinusitis and bronchitis Critical Care Time Critical Care Time Critical Care Time: No Discharge Plan Discharge Clinical Impression: Sinusitis Qualifiers: Sinusitis location: unspecified location Chronicity: acute Recurrence: not specified as recurrent Qualified Code(s): J01.90 - Acute sinusitis, unspecified Patient Disposition: Home, Self-Care Condition: Stable Instructions: Antibiotic Form, Sinusitis (ED) Additional Instructions: Take the antibiotics as directed and complete the course even if you start to feel better. You may use a Neti pot saline rinse 3 times a day. Continue to take Tylenol or Motrin for pain. Use a humidifier or vaporizer at night. Drink plenty of water. 8-10 glasses per day. Use flonase 2 times per day for 5 days then as needed Take mucinex 2 times per day and be sure to take with 8oz of water. Follow-up with PCP in 1-2 weeks If you have new or worsening symptoms or develops difficulty breathing, worsening dizziness, or chest pain please go to the ER Patient is informed that they may have pre-hypertension or hypertension based on a blood pressure reading in the department. I recommend the patient call the primary care provider listed on their discharge instructions or a physician of their choice this week to arrange follow-up for further evaluation of possible pre-hypertension or hypertension. Patient Language: Montserratian Prescriptions: New doxycycline monohydrate 100 mg capsule 100 mg PO BID 7 Days Qty: 14 0RF No Action tretinoin 0.05 % cream TOPICAL risedronate 150 mg tablet PO escitalopram oxalate 10 mg tablet 10 mg PO DAILY cyclobenzaprine 10 mg tablet 10 mg PO TID PRN (Reason: muscle spasm) Qty: 30 0RF hydrocortisone [Anusol-HC] 2.5 % cream with perineal applicator 1 applic RECTAL TID PRN (Reason: hemorrhoids) Qty: 30 0RF Rx Instructions: apply to hemorrhoid bid-tid as needed for no more then 2 weeks. levothyroxine [Synthroid] 75 mcg tablet See Rx Instructions .ROUTE .COMPLEX Qty: 90 2RF Dose Instruction: TAKE 1 TABLET DAILY Rx Instructions: TAKE 1 TABLET DAILY Follow-up/Referrals: Adan Lora MD [Primary Care Provider] - Time of Disposition: 10:17
== END 2024-09-14 10:20 | disposition home or self-care (01) ==
PROVIDERS: PCP Family Medicine
DX: J01.90 Acute sinusitis, unspecified (principal); Z87.891 Personal history of nicotine dependence; E78.5 Hyperlipidemia, unspecified; Z90.89 Acquired absence of other organs
CPT/HCPCS: 99213; G0463